=== PATIENT | male | born 1945 | race Caucasian/White ===

== ENCOUNTER 2017-11-05 18:54 | Emergency (ER) | payer OTHER ==
[~2017-11-05] VITALS: Ht 182.9 cm; Wt 109.0 kg
[2017-11-05] MEDS ORDERED: PERCOCET 5/31 TABLET PO (20:54)
[2017-11-05 21:22] VITALS: BP 146/97
== END 2017-11-05 21:23 | disposition home or self-care (01) ==
LOC: EME 18:54
PROC: 3E0234Z Introduction of Serum, Toxoid and Vaccine into Muscle, Percutaneous Approach (ICD-10-PCS; principal; 2017-11-05)
PROC: 0JQP0ZZ Repair Left Lower Leg Subcutaneous Tissue and Fascia, Open Approach (ICD-10-PCS; principal; 2017-11-05)
DX: S81.812A Laceration without foreign body, left lower leg, initial encounter (principal); W26.8XXA Contact with other sharp object(s), not elsewhere classified, initial encounter; Z23 Encounter for immunization; M17.12 Unilateral primary osteoarthritis, left knee; I10 Essential (primary) hypertension; E78.5 Hyperlipidemia, unspecified; Z79.82 Long term (current) use of aspirin; Z95.1 Presence of aortocoronary bypass graft
CPT/HCPCS: 73590; 99281; 99284

== ENCOUNTER 2017-12-23 10:00 | Observation (INO) | payer OTHER ==
[~2017-12-23] VITALS: Ht 182.9 cm; Wt 106.2 kg
[~2017-12-23 10:00] MED LIST: PERCOCET 5/31 TABLET PO
[2017-12-23 11:43] LABS: BASOPHIL (%) 0.1 % (0-1); EOSINOPHIL (%) 0 % (0-5); HEMOGLOBIN 16.5 G/DL (12.5-16.6); IMMATURE GRANULOCYTE (%) 0.3 % (0.0-0.7); LYMPHOCYTE (%) 3.3 % (15-42); LYMPHOCYTE COUNT 0.6 K/uL (1.0-2.8); MCH 32.9 PG (29.0-34.0); MCHC 34.4 G/DL (30.0-36.0); MCV 95.6 FL (86-99); MONOCYTE (%) 7.6 % (3-12); MONOCYTE COUNT 1.4 K/uL (0-0.8); NEUTROPHIL (%) 88.7 % (45-76); NEUTROPHIL COUNT 16.2 K/uL (1.8-6.4); PLATELET COUNT 224 K/uL (156-360); RBC DIS.WIDTH-CV 12.5 % (11.8-14.6); RBC DIS.WIDTH-SD 44.2 % (39-53); RED BLOOD COUNT 5.02 M/uL (4.00-5.50); WHITE BLOOD COUNT 18.3 K/uL (4.1-10.2)
[2017-12-23 11:55] LABS: ALBUMIN 4.2 g/dL (3.2-4.8); CHLORIDE 110 mEq/L (99-109); POTASSIUM 4.2 mEq/L (3.7-5.4); SODIUM 136 mEq/L (136-147)
[2017-12-23 11:58] LABS: GLUCOSE 131 mg/dL (70-99); TOTAL PROTEIN 7.1 g/dL (6.4-8.3)
[2017-12-23 12:00] LABS: TOTAL BILIRUBIN 2.4 mg/dL (0.0-1.0)
[2017-12-23 12:01] LABS: ALKALINE PHOSPHATASE 65 IU/L (3-129); CREATININE 1.1 mg/dL (0.6-1.3); GFR ESTIMATE (CALCULATED) > 59 mL/min/ (58.99-99999)
[2017-12-23 12:02] LABS: UREA NITROGEN (BUN) 25 mg/dL (9-23)
[2017-12-23 12:03] LABS: AST (GOT) 23 IU/L (2-34)
[2017-12-23 12:04] LABS: ALT (GPT) 22 IU/L (3-49)
[2017-12-23 12:05] LABS: LIPASE 9 U/L (1.0-51.0)
[2017-12-23 12:55] LABS: TROP-I INTERPRETATION NEGATIVE; TROPONIN-I < 0.01 ng/mL (0.0-0.30)
[2017-12-23 13:05] LABS: APPEARANCE CLEAR ((CLEAR)); BILIRUBIN NEGATIVE; BLOOD NEGATIVE; COLOR AMBER ((YELLOW)); GLUCOSE (STRIP) NEGATIVE; KETONES 5; LEUKOCYTES NEGATIVE; NITRITE NEGATIVE; PROTEIN (STRIP) 100; SPECIFIC GRAVITY 1.032 (1.000-1.030); UROBILINOGEN 0.2 MG/DL (0.2-1.0)
[2017-12-23 13:11] LABS: BACTERIA NONE SEEN /HPF; EPITHELIAL CELLS RARE /HPF; HYALINE CASTS 0-5 /LPF; MUCUS 4+ /LPF; RED BLOOD CELLS 0-5 /HPF (0-5); UCUL ADDED? NO; WHITE BLOOD CELLS 0-5 /HPF (0-5)
[2017-12-23 17:00] VITALS: BP 136/63
[2017-12-23 19:55] VITALS: BP 118/58
[2017-12-23 20:24] LABS: TROP-I INTERPRETATION NEGATIVE; TROPONIN-I < 0.01 ng/mL (0.0-0.30)
[2017-12-23 20:41] LABS: C DIFF TOXIN NEGATIVE (NEGATIVE)
[2017-12-24 00:32] VITALS: BP 140/65
[2017-12-24 01:26] LABS: TROP-I INTERPRETATION NEGATIVE; TROPONIN-I < 0.01 ng/mL (0.0-0.30)
[2017-12-24 05:26] VITALS: BP 129/59
[2017-12-24 06:03] LABS: ALBUMIN 3.1 G/DL (3.2-4.8); ALKALINE PHOSPHATASE 43 IU/L (3-129); ALT (GPT) 12 IU/L (3-49); AST (GOT) 15 IU/L (2-34); CHLORIDE 113 MEQ/L (99-109); CREATININE 1.1 MG/DL (0.6-1.3); DIRECT BILIRUBIN 0.4 mg/dL (0.0-0.3); GFR ESTIMATE (CALCULATED) > 59 mL/min/ (58.99-99999); GLUCOSE 107 mg/dL (70-99); POTASSIUM 4.2 MEQ/L (3.7-5.4); SODIUM 141 MEQ/L (136-147); TOTAL BILIRUBIN 1.8 MG/DL (0.0-1.0); TOTAL PROTEIN 5.3 G/DL (6.4-8.3); UREA NITROGEN (BUN) 21 mg/dL (9-23)
[2017-12-24 06:05] LABS: HEMATOCRIT 40.9 % (38.0-50.0); MCH 32.9 PG (29.0-34.0); MCHC 33.3 G/DL (30.0-36.0); MCV 98.8 FL (86-99); PLATELET COUNT 194 K/uL (156-360); RBC DIS.WIDTH-CV 12.8 % (11.8-14.6); RBC DIS.WIDTH-SD 46.5 % (39-53); RED BLOOD COUNT 4.14 M/uL (4.00-5.50); WHITE BLOOD COUNT 7.6 K/uL (4.1-10.2)
[2017-12-24 06:07] LABS: HEMOGLOBIN 13.6 G/DL (12.5-16.6)
[2017-12-24 07:35] VITALS: BP 126/62
[2017-12-24 11:31] VITALS: BP 122/58
[2017-12-24] MEDS ORDERED: MULTIVITAMIN1 EAC2 PO (12:13)
[2017-12-24] MEDS ORDERED: LO-DOSE ASPIRIN81 M2 PO (12:14)
[2017-12-24] MEDS ORDERED: ENDOCET 5-3251 EACH PO (12:20)
[2017-12-24] MEDS ORDERED: ATORVASTATIN CA40 MG PO ×2 (12:23→15:17)
[2017-12-24] MEDS ORDERED: PERCOCET 5/31 TABLET PO (12:24)
[2017-12-24] MEDS ORDERED: NEXIUM40 MG PO (12:29)
[2017-12-24] MEDS ORDERED: FUROSEMIDE20 MG PO (15:14)
[2017-12-24] MEDS ORDERED: ARICEPT10 MG PO (15:14)
[2017-12-24] MEDS ORDERED: LOSARTAN POTASS50 MG PO (15:17)
[2017-12-24] MEDS ORDERED: VITAMIN D31000 UNI2 PO (15:19)
[2017-12-24] MEDS ORDERED: ASPIRIN81 M2 PO (15:20)
[2017-12-24 15:48] VITALS: BP 151/67
[2017-12-24 19:58] VITALS: BP 126/58
[2017-12-25 00:26] VITALS: BP 113/59
[2017-12-25 07:45] VITALS: BP 114/60
[2017-12-25 09:42] LABS: ALBUMIN 3.2 G/DL (3.2-4.8); ALKALINE PHOSPHATASE 41 IU/L (3-129); ALT (GPT) 13 IU/L (3-49); AST (GOT) 17 IU/L (2-34); CHLORIDE 111 MEQ/L (99-109); CREATININE 0.9 MG/DL (0.6-1.3); GFR ESTIMATE (CALCULATED) > 59 mL/min/ (58.99-99999); GLUCOSE 95 mg/dL (70-99); POTASSIUM 3.8 MEQ/L (3.7-5.4); SODIUM 141 MEQ/L (136-147); TOTAL BILIRUBIN 1.2 MG/DL (0.0-1.0); TOTAL PROTEIN 5.2 G/DL (6.4-8.3); UREA NITROGEN (BUN) 13 mg/dL (9-23)
[2017-12-25] MEDS ORDERED: LOSARTAN POTASS50 MG PO (11:12)
== END 2017-12-25 12:32 | disposition home or self-care (01) ==
LOC: EME 10:00 → 4SOUTH 15:35 → EDOF 15:35 → ENRESERV 15:40 → 4SOUTH 16:51
PROVIDERS: Emergency Medicine; Hospitalist; Internal Medicine
DX: A08.4 Viral intestinal infection, unspecified (principal); I10 Essential (primary) hypertension; I25.10 Atherosclerotic heart disease of native coronary artery without angina pectoris; Z90.49 Acquired absence of other specified parts of digestive tract; E87.2 Acidosis; E80.6 Other disorders of bilirubin metabolism; Z98.890 Other specified postprocedural states; R07.9 Chest pain, unspecified; D72.829 Elevated white blood cell count, unspecified
CPT/HCPCS: 71045; 80048; 80053; 80076; 81003; 83605; 83630; 83690; 84484; 85025; 85027; 87177; 87493; 87506; 93005; 99281; 99284; G0378; J1650; J2405; J7030; J7040; S0028